=== PATIENT | male | born 1990 | race Asian ===

== ENCOUNTER 2021-01-12 19:05 | Emergency (ER) | payer SELFPAY ==
[~2021-01-12] VITALS: Ht 177.8 cm; Wt 100.0 kg
[2021-01-12 19:59] LABS: HEMATOCRIT. 47.3 % (42.0-52.0); HEMOGLOBIN. 15.5 g/dL (14.0-18.0); MEAN CORPUSCULAR HEMOGLOBIN 28.6 pg (28.0-32.0); MEAN CORPUSCULAR VOLUME 87.2 fL (80.0-94.0); MEAN PLATELET VOLUME 9.6 fl (7.4-10.4); PLATELET 204 x1000/uL (130-400); RED BLOOD CELL COUNT 5.42 mill/uL (4.7-6.1); RED CELL DISTRIBUTION WIDTH 13.6 % (11.6-14.6)
[2021-01-12 20:03] LABS: CLARITY URINE CLEAR (CLEAR); COLOR URINE YELLOW (YELLOW); KETONES URINE NEGATIVE (NEGATIVE); LEUKOCYTE ESTERASE URINE NEGATIVE (NEGATIVE); NITRITE URINE NEGATIVE (NEGATIVE); OCCULT BLOOD URINE 1+ (NEGATIVE); PROTEIN URINE NEGATIVE (NEGATIVE); SPECIFIC GRAVITY URINE 1.006 (1.005-1.030); UROBILINOGEN URINE 0.2 E.U./dL (0.2-1.0)
[2021-01-12 20:10] LABS: CHLORIDE 108 mEq/L (98-107)
[2021-01-12 20:14] LABS: ETHANOL BLOOD 88 mg/dL
[2021-01-12] MEDS ORDERED: ONDANSETRON HCL 4MG/2ML INJ IV ONE (20:15)
[2021-01-12 20:17] LABS: *AMPHETAMINES SCREEN URINE PRESUMTIVE POSITIVE (NEGATIVE); *BENZODIAZEPINES SCREEN URINE NEGATIVE (NEGATIVE); *COCAINE SCREEN URINE NEGATIVE (NEGATIVE); METHADONE URINE SCREEN NEGATIVE (NEGATIVE); OPIATES URINE SCREEN NEGATIVE (NEGATIVE); PHENCYCLIDINE URINE SCREEN PRESUMTIVE POSITIVE (NEGATIVE)
[2021-01-12 20:18] LABS: *BARBITURATES SCREEN URINE NEGATIVE (NEGATIVE); CANNABINOID URINE SCREEN PRESUMTIVE POSITIVE (NEGATIVE)
[2021-01-12 20:31] VITALS: BP 139/85
[2021-01-12 21:16] LABS: PLATELET ESTIMATE NORMAL
== END 2021-01-12 20:31 | disposition home or self-care (01) ==
LOC: ER 19:05
DX: T40.991A Poisoning by other psychodysleptics [hallucinogens], accidental (unintentional), initial encounter (principal); Y92.89 Other specified places as the place of occurrence of the external cause; F11.10 Opioid abuse, uncomplicated
CPT/HCPCS: 36415; 80053; 80305; 80307; 80320; 80329; 81003; 82962; 85025; 93005; 99284; G0480

== ENCOUNTER 2021-07-14 02:20 | Emergency (ER) | payer MEDICAID, OTHER ==
[~2021-07-14] VITALS: Ht 172.7 cm; Wt 82.0 kg
[2021-07-14 02:28] VITALS: BP 127/84
[2021-07-14] MEDS ORDERED: TETANUS, DIPHTHERIA, PERTUSSIS VAC/PF 0.5ML (>7YR OLD) IM ONE (03:45)
[2021-07-14] MEDS ORDERED: LIDOCAINE HCL 1% 20ML VIAL (Pyxis) INJ INFIL ONE (03:45)
[2021-07-14] MEDS ORDERED: ACETAMINOPHEN 500MG TABLET PO ONE (04:00)
== END 2021-07-14 04:40 | disposition home or self-care (01) ==
LOC: ER 02:20
DX: S61.012A Laceration without foreign body of left thumb without damage to nail, initial encounter (principal); W25.XXXA Contact with sharp glass, initial encounter; Y93.89 Activity, other specified; Y92.9 Unspecified place or not applicable
CPT/HCPCS: 12002; 73130; 90471; 90715; 99283; A4217; J3490; Z7610

== ENCOUNTER 2022-01-03 22:00 | Emergency (ER) | payer OTHER, MEDICAID ==
[~2022-01-03] VITALS: Ht 172.7 cm; Wt 100.0 kg
[2022-01-03] MEDS ORDERED: TETANUS, DIPHTHERIA, PERTUSSIS VAC/PF 0.5ML (>10YR OLD) IM ONE (22:45)
[2022-01-04 01:40] VITALS: BP 138/75
== END 2022-01-04 01:42 ==
LOC: ER 22:00
DX: S00.81XA Abrasion of other part of head, initial encounter (principal); R51.9 Headache, unspecified; F12.10 Cannabis abuse, uncomplicated; F10.10 Alcohol abuse, uncomplicated; Y04.0XXA Assault by unarmed brawl or fight, initial encounter; Y93.89 Activity, other specified; Y92.89 Other specified places as the place of occurrence of the external cause; Y99.8 Other external cause status; Y90.9 Presence of alcohol in blood, level not specified
CPT/HCPCS: 99284

== ENCOUNTER 2022-12-31 21:44 | Emergency (ER) | payer SELFPAY ==
[~2022-12-31] VITALS: Ht 172.7 cm; Wt 86.0 kg
[2022-12-31] MEDS ORDERED: BACITRACIN ZINC OINT UDPKT TOP ONE (22:45)
[2022-12-31] MEDS ORDERED: LIDOCAINE HCL/PF 1% 10 MG/ML 5ML VIAL INFIL ONE (22:45)
[2022-12-31] MEDS ORDERED: HYDROCODONE/ACETAMINOPHEN 5/325MG TABLET PO ONE (23:30)
[2022-12-31] MEDS ORDERED: HYDR-4001 MT (23:46)
[2022-12-31] MEDS ORDERED: AMOX-494 MT (23:56)
[2023-01-01] MEDS ORDERED: TETANUS AND DIPHTHERIA TOX/PF 0.5ML SYR (ADULT) IM ONE
[2023-01-01] MEDS ORDERED: CEFAZOLIN 1000MG PREMIX 50 ML IV ONE ×2
[2023-01-01] MEDS ORDERED: IBUP-2029 MT (00:11)
[2023-01-01 00:26] VITALS: BP 121/70
== END 2023-01-01 00:30 | disposition home or self-care (01) ==
LOC: ER 21:44
DX: S21.132A Puncture wound without foreign body of left front wall of thorax without penetration into thoracic cavity, initial encounter (principal); S29.011A Strain of muscle and tendon of front wall of thorax, initial encounter; S01.81XA Laceration without foreign body of other part of head, initial encounter; S27.321A Contusion of lung, unilateral, initial encounter; X95.9XXA Assault by unspecified firearm discharge, initial encounter; Y93.9 Activity, unspecified; Y92.9 Unspecified place or not applicable; Z23 Encounter for immunization; Z71.85 Encounter for immunization safety counseling
CPT/HCPCS: 71045; 90714; 96365; 99284; J0690; J3490; Z7610

== ENCOUNTER 2023-09-21 14:35 | Emergency (ER) | payer MEDICAID ==
[~2023-09-21] VITALS: Ht 172.7 cm; Wt 82.0 kg
[~2023-09-21 14:35] MED LIST: AMOX-494 MT; HYDR-4001 MT; IBUP-2029 MT
[2023-09-21 14:44] VITALS: BP 118/73; PULSE 83; RESP 18; TEMP 98.9; O2SAT 99
[2023-09-21] MEDS ORDERED: BACITRACIN ZINC OINT UDPKT TOP ONE (15:00)
[2023-09-21] MEDS ORDERED: LIDOCAINE HCL/EPINEPHRINE 1%-EPI 1:100,000 20 ML VIAL INFIL ONE (15:00)
[2023-09-21] MEDS ORDERED: HYDR-4009 MT (16:21)
[2023-09-21] MEDS ORDERED: CEPH500T MT (16:21)
[2023-09-21] MEDS ORDERED: LIDOCAINE HCL/PF 1% 10 MG/ML 5ML VIAL INFIL ONE (16:30)
== END 2023-09-21 16:30 | disposition home or self-care (01) ==
LOC: ER 15:10
DX: S51.011A Laceration without foreign body of right elbow, initial encounter (principal); Y08.89XA Assault by other specified means, initial encounter; Y93.89 Activity, other specified; Y92.89 Other specified places as the place of occurrence of the external cause; Y99.8 Other external cause status
CPT/HCPCS: 12032; 99284; J3490 ×2; Z7610 ×2